=== PATIENT | female | born 1950 | race Caucasian/White ===

== ENCOUNTER 2017-06-03 12:54 | Inpatient (IN) | payer MEDICARE, OTHER ==
[2017-06-03] MEDS: morphine 4 MG/ML VIAL IV (14:49)
[2017-06-03] MEDS: PIPER-TAZO 3.375 GM IV (PMX) 100 ML IVPB (14:49)
[2017-06-03] MEDS: ONDANSETRON 4 MG INJ IV ×3 (14:49→19:39)
[2017-06-03 14:53] LABS: ADD MAN DIFF? NO
[2017-06-03 14:55] LABS: BASOPHILS % 0.5 % (0.0-2.0); EOSINOPHILS # 0.2 10^3/ul (0.0-0.5); EOSINOPHILS % 3.2 % (0.0-7.0); HEMATOCRIT 28.4 % (37.0-47.0); HEMOGLOBIN 9.2 g/dl (12.0-16.0); LYMPHOCYTES # 1.3 10^3/ul (0.8-2.9); LYMPHOCYTES % 20.1 % (15.0-51.0); MEAN CORPUSCULAR HEMOGLOBIN 32.2 pg (29.0-33.0); MEAN CORPUSCULAR HGB CONC 32.4 g/dl (32.0-37.0); MEAN CORPUSCULAR VOLUME 99.3 fl (82.0-101.0); MEAN PLATELET VOLUME 9.2 fl (7.4-10.4); MONOCYTE # 0.6 10^3/ul (0.3-0.9); MONOCYTES % 9.1 % (0.0-11.0); NEUTROPHIL # 4.4 10^3/ul (1.6-7.5); NEUTROPHILS % 66.8 % (39.0-77.0); PLATELET COUNT 194 10^3/UL (140-415); RED BLOOD COUNT 2.86 10^6/ul (4.20-5.40); RED CELL DISTRIBUTION WIDTH 15.7 % (11.5-14.5)
[2017-06-03 14:55] LABS: WHITE BLOOD COUNT 6.6 10^3/ul (4.8-10.8)
[2017-06-03 15:00] LABS: LACTIC ACID 1.8 mmol/L (0.5-2.0)
[2017-06-03 15:00] LABS: INR 1.65; PROTIME 19.9 Sec (11.9-14.9); PT RATIO 1.6
[2017-06-03 15:01] LABS: PARTIAL THROMBOPLASTIN TIME 59.3 Sec (25.0-35.0)
[2017-06-03 15:02] LABS: ALANINE AMINOTRANSFERASE 22 IU/L (13-69); ALBUMIN/GLOBULIN RATIO 0.56; ALKALINE PHOSPHATASE 169 IU/L (42-121); ANION GAP 15 (8-16); ASPARTATE AMINO TRANSFERASE 82 IU/L (15-46); BILIRUBIN,INDIRECT 0.8 mg/dl (0-1.1); BILIRUBIN,TOTAL 0.8 mg/dl (0.2-1.3); BLOOD UREA NITROGEN 17 mg/dl (7-20); CALCIUM 8.5 mg/dl (8.4-10.2); CARBON DIOXIDE 24 mmol/L (21-31); CHLORIDE 106 mmol/L (97-110); CREATININE 0.62 mg/dl (0.44-1.00); GLUCOSE 114 mg/dl (70-220); POTASSIUM 4.3 mmol/L (3.5-5.1); SODIUM 141 mmol/L (135-144); TOTAL PROTEIN 8.3 g/dl (6.1-8.1)
[2017-06-03 15:25] LABS: C-REACTIVE PROTEIN 6.8 mg/dl (0.0-0.9)
[2017-06-03 15:34] LABS: TROPONIN-I < 0.012 ng/ml (0.00-0.12)
[2017-06-03] MEDS: CLINDAMYCIN 900 MG/D5W (PMX) 50 ML IVPB (16:00)
[2017-06-03 16:34] LABS: ERYTHROCYTE SEDIMENTATION RATE 127 mm/Hr (0-30)
[2017-06-03 16:53] LABS: LACTIC ACID 1.5 mmol/L (0.5-2.0)
[2017-06-03] MEDS: VANCOMYCIN 1 GM (PMX) 250 ML IVPB (17:14)
[2017-06-03] MEDS: HYDROmorphONE 0.5 MG/0.5 ML SYG IV (17:21)
[2017-06-03] MEDS: ACETAMINOPHEN 500 MG TAB PO (19:38)
[2017-06-03] MEDS: IBUPROFEN 800 MG TAB PO (19:38)
[2017-06-03] MEDS: SOD CHLORIDE 0.9% 1,000 ML IV (21:35)
[2017-06-04] MEDS: SOD CHLORIDE 0.9% 500 ML IV
[2017-06-04] MEDS: FENTAnyl 50 MCG/ML VIAL IV (00:17)
[2017-06-04] MEDS ORDERED: ONDANSETRON 4 MG INJ IV (02:00)
[2017-06-04] MEDS ORDERED: ACETAMINOPHEN 325 MG TAB PO (02:00)
[2017-06-04] MEDS: CEFEPIME 1GM/50 ML (PMX) 50 ML IVPB ×3 (02:00→20:59)
[2017-06-04] MEDS ORDERED: VANCOMYCIN IV PER PHARMACY XX (02:00)
[2017-06-04] MEDS: morphine 2 MG INJ IV (02:21)
[2017-06-04] MEDS: VANCOMYCIN 1.5 GM in SOD CHLORIDE 0.9% 250 ML IVPB (05:23)
[2017-06-04 11:02] LABS: ADD MAN DIFF? NO
[2017-06-04 11:11] LABS: WHITE BLOOD COUNT 6.1 10^3/ul (4.8-10.8)
[2017-06-04 11:11] LABS: BASOPHILS % 0.5 % (0.0-2.0); EOSINOPHILS # 0.3 10^3/ul (0.0-0.5); EOSINOPHILS % 4.3 % (0.0-7.0); HEMATOCRIT 28.2 % (37.0-47.0); HEMOGLOBIN 8.9 g/dl (12.0-16.0); LYMPHOCYTES % 17.1 % (15.0-51.0); MEAN CORPUSCULAR HEMOGLOBIN 31.9 pg (29.0-33.0); MEAN CORPUSCULAR HGB CONC 31.6 g/dl (32.0-37.0); MEAN CORPUSCULAR VOLUME 101.1 fl (82.0-101.0); MEAN PLATELET VOLUME 8.5 fl (7.4-10.4); MONOCYTE # 0.5 10^3/ul (0.3-0.9); MONOCYTES % 7.9 % (0.0-11.0); NEUTROPHIL # 4.3 10^3/ul (1.6-7.5); NEUTROPHILS % 69.9 % (39.0-77.0); PLATELET COUNT 194 10^3/UL (140-415); RED BLOOD COUNT 2.79 10^6/ul (4.20-5.40); RED CELL DISTRIBUTION WIDTH 15.8 % (11.5-14.5)
[2017-06-04 11:22] LABS: ALANINE AMINOTRANSFERASE 28 IU/L (13-69); ALBUMIN 2.7 g/dl (3.3-4.9); ALKALINE PHOSPHATASE 132 IU/L (42-121); ANION GAP 11 (8-16); ASPARTATE AMINO TRANSFERASE 46 IU/L (15-46); BILIRUBIN,INDIRECT 0.8 mg/dl (0-1.1); BILIRUBIN,TOTAL 0.8 mg/dl (0.2-1.3); BLOOD UREA NITROGEN 18 mg/dl (7-20); CALCIUM 7.6 mg/dl (8.4-10.2); CARBON DIOXIDE 25 mmol/L (21-31); CHLORIDE 108 mmol/L (97-110); CREATININE 0.81 mg/dl (0.44-1.00); GLUCOSE 91 mg/dl (70-220); MAGNESIUM 1.8 mg/dl (1.7-2.5); POTASSIUM 3.4 mmol/L (3.5-5.1); SODIUM 141 mmol/L (135-144); TOTAL PROTEIN 7.2 g/dl (6.1-8.1)
[2017-06-04 11:38] LABS: IRON 72 ug/dl (35-150)
[2017-06-04 11:47] LABS: % IRON SATURATION 37 % SAT (22-52); TOTAL IRON BINDING CAPACITY 194 ug/dl (241-421)
[2017-06-04] MEDS ORDERED: HYDROCODONE/APAP (5/325) TAB PO (16:30)
[2017-06-04] MEDS ORDERED: LORAZEPAM 0.5 MG TAB PO (16:30)
[2017-06-04] MEDS: SOD CHLORIDE 0.9% 1,000 ML IV (17:20)
[2017-06-04] MEDS: morphine (ER) 30 MG TAB PO (20:58)
[2017-06-05] MEDS: VANCOMYCIN 1.5 GM in SOD CHLORIDE 0.9% 250 ML IVPB (05:31)
[2017-06-05] MEDS: PANTOPRAZOLE (EC) 40 MG TAB PO (05:32)
[2017-06-05 05:47] LABS: ADD MAN DIFF? NO
[2017-06-05 05:55] LABS: WHITE BLOOD COUNT 5.3 10^3/ul (4.8-10.8)
[2017-06-05 05:55] LABS: BASOPHILS % 0.6 % (0.0-2.0); EOSINOPHILS # 0.3 10^3/ul (0.0-0.5); EOSINOPHILS % 6.1 % (0.0-7.0); HEMATOCRIT 23.6 % (37.0-47.0); HEMOGLOBIN 7.6 g/dl (12.0-16.0); LYMPHOCYTES # 1.3 10^3/ul (0.8-2.9); MEAN CORPUSCULAR HGB CONC 32.2 g/dl (32.0-37.0); MEAN CORPUSCULAR VOLUME 102.6 fl (82.0-101.0); MEAN PLATELET VOLUME 8.6 fl (7.4-10.4); MONOCYTE # 0.4 10^3/ul (0.3-0.9); MONOCYTES % 8.2 % (0.0-11.0); NEUTROPHIL # 3.2 10^3/ul (1.6-7.5); NEUTROPHILS % 60.7 % (39.0-77.0); PLATELET COUNT 161 10^3/UL (140-415); RED CELL DISTRIBUTION WIDTH 15.6 % (11.5-14.5)
[2017-06-05 06:15] LABS: ANION GAP 11 (8-16); BLOOD UREA NITROGEN 16 mg/dl (7-20); CALCIUM 7.8 mg/dl (8.4-10.2); CARBON DIOXIDE 23 mmol/L (21-31); CHLORIDE 113 mmol/L (97-110); CREATININE 0.77 mg/dl (0.44-1.00); GLUCOSE 86 mg/dl (70-220); POTASSIUM 4.2 mmol/L (3.5-5.1); SODIUM 143 mmol/L (135-144)
[2017-06-05] MEDS ORDERED: SOD CHLORIDE 0.9% 1,000 ML IV (06:30)
[2017-06-05 06:59] LABS: HEPATITIS C VIRAL ANTIBODY REACTIVE (NEGATIVE)
[2017-06-05 07:02] LABS: MAGNESIUM 1.9 mg/dl (1.7-2.5)
[2017-06-05 07:02] LABS: PHOSPHORUS 3.7 mg/dl (2.5-4.9)
[2017-06-05] MEDS: CEFEPIME 1GM/50 ML (PMX) 50 ML IVPB (09:17)
[2017-06-05] MEDS: morphine (ER) 30 MG TAB PO ×2 (09:17→21:11)
[2017-06-05] MEDS: LIDOCAINE 1% (MPF) 5 ML VIAL SC (13:00)
[2017-06-06] MEDS: VANCOMYCIN 1.5 GM in SOD CHLORIDE 0.9% 250 ML IVPB (05:00)
[2017-06-06 05:37] LABS: ADD MAN DIFF? NO
[2017-06-06 05:46] LABS: BASOPHILS % 0.6 % (0.0-2.0); EOSINOPHILS # 0.2 10^3/ul (0.0-0.5); HEMATOCRIT 25.2 % (37.0-47.0); HEMOGLOBIN 7.9 g/dl (12.0-16.0); LYMPHOCYTES # 1.4 10^3/ul (0.8-2.9); LYMPHOCYTES % 28.2 % (15.0-51.0); MEAN CORPUSCULAR HEMOGLOBIN 32.1 pg (29.0-33.0); MEAN CORPUSCULAR HGB CONC 31.3 g/dl (32.0-37.0); MEAN CORPUSCULAR VOLUME 102.4 fl (82.0-101.0); MEAN PLATELET VOLUME 8.3 fl (7.4-10.4); MONOCYTE # 0.4 10^3/ul (0.3-0.9); NEUTROPHIL # 2.9 10^3/ul (1.6-7.5); NEUTROPHILS % 58.4 % (39.0-77.0); PLATELET COUNT 189 10^3/UL (140-415); RED BLOOD COUNT 2.46 10^6/ul (4.20-5.40); RED CELL DISTRIBUTION WIDTH 15.6 % (11.5-14.5)
[2017-06-06] MEDS: PANTOPRAZOLE (EC) 40 MG TAB PO (06:00)
[2017-06-06 06:29] LABS: PHOSPHORUS 4.7 mg/dl (2.5-4.9)
[2017-06-06 06:33] LABS: ANION GAP 12 (8-16); BLOOD UREA NITROGEN 14 mg/dl (7-20); CALCIUM 8.7 mg/dl (8.4-10.2); CARBON DIOXIDE 25 mmol/L (21-31); CHLORIDE 110 mmol/L (97-110); CREATININE 0.76 mg/dl (0.44-1.00); GLUCOSE 101 mg/dl (70-220); POTASSIUM 4.1 mmol/L (3.5-5.1); SODIUM 143 mmol/L (135-144)
[2017-06-06] MEDS: morphine (ER) 30 MG TAB PO ×2 (08:38→21:04)
[2017-06-06] MEDS: LIDOCAINE 1% (MPF) 5 ML VIAL SC (14:30)
[2017-06-06] MEDS: morphine 2 MG INJ IV (16:01)
[2017-06-06] MEDS ORDERED: LIDOCAINE 1% (MPF) 5 ML VIAL SC (19:30)
[2017-06-06] MEDS: SENNA/DOCUSATE NA (8.6MG/50MG) TAB PO (21:04)
[2017-06-06] MEDS: DOCUSATE SODIUM 100 MG CAP PO (21:04)
[2017-06-07 04:07] LABS: ADD MAN DIFF? NO
[2017-06-07 04:16] LABS: BASOPHILS % 0.3 % (0.0-2.0); EOSINOPHILS # 0.2 10^3/ul (0.0-0.5); EOSINOPHILS % 2.9 % (0.0-7.0); HEMATOCRIT 25.1 % (37.0-47.0); HEMOGLOBIN 8.1 g/dl (12.0-16.0); LYMPHOCYTES % 17.9 % (15.0-51.0); MEAN CORPUSCULAR HEMOGLOBIN 32.7 pg (29.0-33.0); MEAN CORPUSCULAR HGB CONC 32.3 g/dl (32.0-37.0); MEAN CORPUSCULAR VOLUME 101.2 fl (82.0-101.0); MEAN PLATELET VOLUME 7.9 fl (7.4-10.4); MONOCYTE # 0.5 10^3/ul (0.3-0.9); MONOCYTES % 9.2 % (0.0-11.0); NEUTROPHILS % 69.4 % (39.0-77.0); PLATELET COUNT 178 10^3/UL (140-415); RED BLOOD COUNT 2.48 10^6/ul (4.20-5.40); RED CELL DISTRIBUTION WIDTH 15.7 % (11.5-14.5)
[2017-06-07 04:16] LABS: WHITE BLOOD COUNT 5.8 10^3/ul (4.8-10.8)
[2017-06-07 04:26] LABS: PROTIME 32.9 Sec (11.9-14.9); PT RATIO 2.6
[2017-06-07 04:33] LABS: ALANINE AMINOTRANSFERASE 28 IU/L (13-69); ALBUMIN 2.7 g/dl (3.3-4.9); ALBUMIN/GLOBULIN RATIO 0.62; ALKALINE PHOSPHATASE 114 IU/L (42-121); ANION GAP 14 (8-16); ASPARTATE AMINO TRANSFERASE 52 IU/L (15-46); BILIRUBIN,INDIRECT 0.8 mg/dl (0-1.1); BILIRUBIN,TOTAL 0.8 mg/dl (0.2-1.3); BLOOD UREA NITROGEN 16 mg/dl (7-20); CALCIUM 8.9 mg/dl (8.4-10.2); CARBON DIOXIDE 21 mmol/L (21-31); CHLORIDE 108 mmol/L (97-110); CREATININE 0.86 mg/dl (0.44-1.00); GLUCOSE 84 mg/dl (70-220); MAGNESIUM 1.6 mg/dl (1.7-2.5); POTASSIUM 4.1 mmol/L (3.5-5.1); SODIUM 139 mmol/L (135-144)
[2017-06-07 04:33] LABS: PHOSPHORUS 5.3 mg/dl (2.5-4.9)
[2017-06-07] MEDS: VANCOMYCIN 1.5 GM in SOD CHLORIDE 0.9% 250 ML IVPB (05:00)
[2017-06-07 05:36] LABS: VANCOMYCIN,TROUGH 19.6 ug/ml (10.0-20.0)
[2017-06-07] MEDS: PANTOPRAZOLE (EC) 40 MG TAB PO (05:54)
[2017-06-07 06:46] LABS: PARTIAL THROMBOPLASTIN TIME 79.6 Sec (25.0-35.0)
[2017-06-07] MEDS: ARIPIPRAZOLE 5 MG TAB PO (09:03)
[2017-06-07] MEDS: morphine (ER) 30 MG TAB PO ×2 (09:04→20:21)
[2017-06-07] MEDS: DOCUSATE SODIUM 100 MG CAP PO ×2 (09:04→20:20)
[2017-06-07] MEDS: PHYTONADIONE 10 MG in DEXTROSE 5% 50 ML IVPB (11:58)
[2017-06-07 12:42] LABS: AMMONIA < 9 umol/l (9-30)
[2017-06-07] MEDS: VANCOMYCIN 1.25 GM in SOD CHLORIDE 0.9% 250 ML IVPB (12:49)
[2017-06-07 13:17] LABS: D-DIMER 2626.34 ng/ml (<460)
[2017-06-07 14:59] LABS: RETICULOCYTE RBC 2.59
[2017-06-07 14:59] LABS: RETICULOCYTE COUNT # 0.094 X10^6 (0.020-0.110); RETICULOCYTE COUNT % 3.6 % (0.5-1.5)
[2017-06-07 15:29] LABS: LACTATE DEHYDROGENASE 625 IU/L (313-618)
[2017-06-07 16:04] LABS: IRON 90 ug/dl (35-150)
[2017-06-07 16:13] LABS: % IRON SATURATION 41 % SAT (22-52); TOTAL IRON BINDING CAPACITY 219 ug/dl (241-421)
[2017-06-07] MEDS: MAGNESIUM SULFATE 2 GM/50 ML 50 ML IVPB (16:29)
[2017-06-07] MEDS: SENNA/DOCUSATE NA (8.6MG/50MG) TAB PO (20:21)
[2017-06-07 20:23] LABS: HIV 1&2 ANTIBODY REACTIVE (NEGATIVE)
[2017-06-08 05:07] LABS: ADD MAN DIFF? NO
[2017-06-08 05:13] LABS: BASOPHILS % 0.4 % (0.0-2.0); EOSINOPHILS # 0.2 10^3/ul (0.0-0.5); EOSINOPHILS % 3.1 % (0.0-7.0); HEMOGLOBIN 7.5 g/dl (12.0-16.0); LYMPHOCYTES # 0.9 10^3/ul (0.8-2.9); LYMPHOCYTES % 17.1 % (15.0-51.0); MEAN CORPUSCULAR HEMOGLOBIN 32.5 pg (29.0-33.0); MEAN CORPUSCULAR HGB CONC 32.6 g/dl (32.0-37.0); MEAN CORPUSCULAR VOLUME 99.6 fl (82.0-101.0); MEAN PLATELET VOLUME 8.3 fl (7.4-10.4); MONOCYTE # 0.5 10^3/ul (0.3-0.9); MONOCYTES % 9.8 % (0.0-11.0); NEUTROPHIL # 3.5 10^3/ul (1.6-7.5); NEUTROPHILS % 69.2 % (39.0-77.0); PLATELET COUNT 185 10^3/UL (140-415); RED BLOOD COUNT 2.31 10^6/ul (4.20-5.40); RED CELL DISTRIBUTION WIDTH 15.9 % (11.5-14.5)
[2017-06-08 05:13] LABS: WHITE BLOOD COUNT 5.1 10^3/ul (4.8-10.8)
[2017-06-08 05:33] LABS: INR 1.93; PROTIME 22.5 Sec (11.9-14.9); PT RATIO 1.8
[2017-06-08 05:34] LABS: ALANINE AMINOTRANSFERASE 25 IU/L (13-69); ALBUMIN 2.8 g/dl (3.3-4.9); ALBUMIN/GLOBULIN RATIO 0.63; ALKALINE PHOSPHATASE 122 IU/L (42-121); ANION GAP 14 (8-16); ASPARTATE AMINO TRANSFERASE 56 IU/L (15-46); BILIRUBIN,INDIRECT 0.9 mg/dl (0-1.1); BILIRUBIN,TOTAL 1.2 mg/dl (0.2-1.3); BLOOD UREA NITROGEN 13 mg/dl (7-20); CALCIUM 8.8 mg/dl (8.4-10.2); CARBON DIOXIDE 22 mmol/L (21-31); CHLORIDE 107 mmol/L (97-110); CREATININE 0.65 mg/dl (0.44-1.00); GLUCOSE 96 mg/dl (70-220); POTASSIUM 3.8 mmol/L (3.5-5.1); SODIUM 139 mmol/L (135-144); TOTAL PROTEIN 7.2 g/dl (6.1-8.1)
[2017-06-08] MEDS: PANTOPRAZOLE (EC) 40 MG TAB PO (05:57)
[2017-06-08 06:26] LABS: MAGNESIUM 1.8 mg/dl (1.7-2.5)
[2017-06-08 06:26] LABS: PHOSPHORUS 3.7 mg/dl (2.5-4.9)
[2017-06-08] MEDS: ARIPIPRAZOLE 5 MG TAB PO (08:57)
[2017-06-08] MEDS: morphine (ER) 30 MG TAB PO ×2 (08:57→20:51)
[2017-06-08] MEDS: DOCUSATE SODIUM 100 MG CAP PO ×2 (08:57→20:52)
[2017-06-08] MEDS ORDERED: ACETAMINOPHEN 325 MG TAB PO (10:30)
[2017-06-08] MEDS ORDERED: FUROSEMIDE 40 MG INJ IV (10:30)
[2017-06-08] MEDS: PHYTONADIONE 10 MG in DEXTROSE 5% 50 ML IVPB (12:08)
[2017-06-08] MEDS: VANCOMYCIN 1.25 GM in SOD CHLORIDE 0.9% 250 ML IVPB (12:57)
[2017-06-08] MEDS: SENNA/DOCUSATE NA (8.6MG/50MG) TAB PO (20:52)
[2017-06-09 05:16] LABS: ADD MAN DIFF? NO
[2017-06-09 05:25] LABS: WHITE BLOOD COUNT 5.4 10^3/ul (4.8-10.8)
[2017-06-09 05:25] LABS: ABNORMAL IP MESSAGE 1; BASOPHILS % 0.4 % (0.0-2.0); EOSINOPHILS # 0.1 10^3/ul (0.0-0.5); EOSINOPHILS % 2.2 % (0.0-7.0); HEMATOCRIT 20.7 % (37.0-47.0); LYMPHOCYTES # 0.7 10^3/ul (0.8-2.9); LYMPHOCYTES % 13.6 % (15.0-51.0); MEAN CORPUSCULAR HEMOGLOBIN 32.5 pg (29.0-33.0); MEAN CORPUSCULAR HGB CONC 32.9 g/dl (32.0-37.0); MEAN PLATELET VOLUME 8.4 fl (7.4-10.4); MONOCYTE # 0.5 10^3/ul (0.3-0.9); NEUTROPHILS % 74.4 % (39.0-77.0); PLATELET COUNT 165 10^3/UL (140-415); RED BLOOD COUNT 2.09 10^6/ul (4.20-5.40); RED CELL DISTRIBUTION WIDTH 16.1 % (11.5-14.5)
[2017-06-09 05:30] LABS: POSITIVE DIFF @See below
[2017-06-09 05:31] LABS: HEMOGLOBIN 6.8 g/dl (12.0-16.0)
[2017-06-09 05:44] LABS: INR 1.52; PROTIME 18.6 Sec (11.9-14.9); PT RATIO 1.5
[2017-06-09 05:53] LABS: ALANINE AMINOTRANSFERASE 26 IU/L (13-69); ALBUMIN 2.4 g/dl (3.3-4.9); ALBUMIN/GLOBULIN RATIO 0.58; ALKALINE PHOSPHATASE 109 IU/L (42-121); ANION GAP 13 (8-16); ASPARTATE AMINO TRANSFERASE 52 IU/L (15-46); BILIRUBIN,INDIRECT 0.9 mg/dl (0-1.1); BILIRUBIN,TOTAL 1.2 mg/dl (0.2-1.3); BLOOD UREA NITROGEN 7 mg/dl (7-20); CALCIUM 8.5 mg/dl (8.4-10.2); CARBON DIOXIDE 22 mmol/L (21-31); CHLORIDE 109 mmol/L (97-110); CREATININE 0.58 mg/dl (0.44-1.00); GLUCOSE 96 mg/dl (70-220); POTASSIUM 3.6 mmol/L (3.5-5.1); SODIUM 140 mmol/L (135-144); TOTAL PROTEIN 6.5 g/dl (6.1-8.1)
[2017-06-09 06:00] LABS: MAGNESIUM 1.6 mg/dl (1.7-2.5)
[2017-06-09 06:00] LABS: PHOSPHORUS 2.8 mg/dl (2.5-4.9)
[2017-06-09 06:01] LABS: PROTEIN, TOTAL 7.1 g/dL (6.1-8.1)
[2017-06-09] MEDS: PANTOPRAZOLE (EC) 40 MG TAB PO (06:41)
[2017-06-09] MEDS: morphine (ER) 30 MG TAB PO ×2 (08:40→20:35)
[2017-06-09] MEDS: ARIPIPRAZOLE 5 MG TAB PO (08:40)
[2017-06-09] MEDS: DOCUSATE SODIUM 100 MG CAP PO ×2 (08:41→20:35)
[2017-06-09] MEDS: LIDOCAINE 1% (MPF) 5 ML VIAL SC (10:33)
[2017-06-09 10:57] LABS: OCCULT BLOOD STOOL POSITIVE (NEGATIVE)
[2017-06-09] MEDS: VANCOMYCIN 1.25 GM in SOD CHLORIDE 0.9% 250 ML IVPB (12:07)
[2017-06-09 15:51] LABS: ALBUMIN 2.5 g/dL (3.8-4.8); ALPHA-1-GLOBULINS 0.5 g/dL (0.2-0.3); ALPHA-2-GLOBULINS 0.7 g/dL (0.5-0.9); BETA 2 GLOBULINS 0.5 g/dL (0.2-0.5); BETA GLOBULINS 0.5 g/dL (0.4-0.6); GAMMA GLOBULINS 2.5 g/dL (0.8-1.7)
[2017-06-09] MEDS: SENNA/DOCUSATE NA (8.6MG/50MG) TAB PO (20:35)
[2017-06-09] MEDS: EPOETIN 4000 UNITS/ML (NON ESRD/NON ONCOLOGY) SC (20:42)
[2017-06-10 05:30] LABS: ADD MAN DIFF? NO
[2017-06-10 05:36] LABS: BASOPHILS % 0.5 % (0.0-2.0); EOSINOPHILS # 0.1 10^3/ul (0.0-0.5); EOSINOPHILS % 2.5 % (0.0-7.0); HEMATOCRIT 23.3 % (37.0-47.0); HEMOGLOBIN 7.6 g/dl (12.0-16.0); LYMPHOCYTES # 0.9 10^3/ul (0.8-2.9); LYMPHOCYTES % 16.4 % (15.0-51.0); MEAN CORPUSCULAR HEMOGLOBIN 32.8 pg (29.0-33.0); MEAN CORPUSCULAR HGB CONC 32.6 g/dl (32.0-37.0); MEAN CORPUSCULAR VOLUME 100.4 fl (82.0-101.0); MEAN PLATELET VOLUME 8.4 fl (7.4-10.4); MONOCYTE # 0.5 10^3/ul (0.3-0.9); MONOCYTES % 8.1 % (0.0-11.0); NEUTROPHILS % 72.1 % (39.0-77.0); PLATELET COUNT 194 10^3/UL (140-415); RED BLOOD COUNT 2.32 10^6/ul (4.20-5.40); RED CELL DISTRIBUTION WIDTH 16.6 % (11.5-14.5)
[2017-06-10 05:36] LABS: WHITE BLOOD COUNT 5.6 10^3/ul (4.8-10.8)
[2017-06-10 05:41] LABS: ALANINE AMINOTRANSFERASE 31 IU/L (13-69); ALBUMIN 2.6 g/dl (3.3-4.9); ALBUMIN/GLOBULIN RATIO 0.63; ALKALINE PHOSPHATASE 150 IU/L (42-121); ANION GAP 14 (8-16); ASPARTATE AMINO TRANSFERASE 63 IU/L (15-46); BILIRUBIN,INDIRECT 1.1 mg/dl (0-1.1); BILIRUBIN,TOTAL 1.7 mg/dl (0.2-1.3); BLOOD UREA NITROGEN 3 mg/dl (7-20); CALCIUM 8.5 mg/dl (8.4-10.2); CARBON DIOXIDE 23 mmol/L (21-31); CHLORIDE 108 mmol/L (97-110); CREATININE 0.51 mg/dl (0.44-1.00); GLUCOSE 102 mg/dl (70-220); POTASSIUM 3.4 mmol/L (3.5-5.1); SODIUM 142 mmol/L (135-144); TOTAL PROTEIN 6.7 g/dl (6.1-8.1)
[2017-06-10] MEDS: PANTOPRAZOLE (EC) 40 MG TAB PO (05:43)
[2017-06-10 05:59] LABS: MAGNESIUM 1.5 mg/dl (1.7-2.5)
[2017-06-10 05:59] LABS: PHOSPHORUS 2.4 mg/dl (2.5-4.9)
[2017-06-10] MEDS: ARIPIPRAZOLE 5 MG TAB PO (08:48)
[2017-06-10] MEDS: morphine (ER) 30 MG TAB PO ×2 (08:49→20:23)
[2017-06-10] MEDS: DOCUSATE SODIUM 100 MG CAP PO ×2 (08:49→21:00)
[2017-06-10] MEDS: LIDOCAINE 1% (MPF) 5 ML VIAL SC (10:00)
[2017-06-10 12:31] LABS: VANCOMYCIN,TROUGH 11.1 ug/ml (10.0-20.0)
[2017-06-10] MEDS: VANCOMYCIN 1.25 GM in SOD CHLORIDE 0.9% 250 ML IVPB (12:45)
[2017-06-10 12:57] LABS: LYMPHOCYTE - % CD4 (HELPER) 36 % (30-61); LYMPHOCYTE - % CD4 (HELPER) 38 % (30-61); LYMPHOCYTE - %CD8 (SUPPRESSOR) 17 % (12-42); LYMPHOCYTE - %CD8 (SUPPRESSOR) 18 % (12-42); LYMPHOCYTE - ABSOLUTE 804 cells/uL (850-3900); LYMPHOCYTE - ABSOLUTE 904 cells/uL (850-3900); LYMPHOCYTE - ABSOLUTE CD4 308 cells/uL (490-1740); LYMPHOCYTE - ABSOLUTE CD4 329 cells/uL (490-1740); LYMPHOCYTE - ABSOLUTE CD8 133 cells/uL (180-1170); LYMPHOCYTE - ABSOLUTE CD8 167 cells/uL (180-1170); LYMPHOCYTE - CD4/CD8 RATIO 1.97 (0.86-5.00); LYMPHOCYTE - CD4/CD8 RATIO 2.32 (0.86-5.00)
[2017-06-10] MEDS: POTASSIUM PHOSPHATE 20 MEQ in SOD CHLORIDE 0.9% 250 ML IVPB (16:23)
[2017-06-10] MEDS: SENNA/DOCUSATE NA (8.6MG/50MG) TAB PO (21:00)
[2017-06-10] MEDS: MAGNESIUM SULFATE 2 GM/50 ML 50 ML IVPB (21:52)
[2017-06-11] MEDS: PANTOPRAZOLE (EC) 40 MG TAB PO (05:06)
[2017-06-11] MEDS: ARIPIPRAZOLE 5 MG TAB PO (08:31)
[2017-06-11] MEDS: morphine (ER) 30 MG TAB PO (08:42)
[2017-06-11] MEDS: DOCUSATE SODIUM 100 MG CAP PO (08:43)
[2017-06-11] MEDS: VANCOMYCIN 1.25 GM in SOD CHLORIDE 0.9% 250 ML IVPB (12:15)
== END 2017-06-11 15:51 | DRG 559 ==
LOC: MS1 21:49 → E/R 12:54
PROC: 02H633Z Insertion of Infusion Device into Right Atrium, Percutaneous Approach (ICD-10-PCS; principal; 2017-06-06)
DX: T84.53XA Infection and inflammatory reaction due to internal right knee prosthesis, initial encounter (principal); A41.9 Sepsis, unspecified organism; L03.115 Cellulitis of right lower limb; Z68.41 Body mass index [BMI] 40.0-44.9, adult; E46 Unspecified protein-calorie malnutrition; D68.9 Coagulation defect, unspecified; E66.01 Morbid (severe) obesity due to excess calories; Z96.651 Presence of right artificial knee joint; G89.4 Chronic pain syndrome; I95.9 Hypotension, unspecified; I87.8 Other specified disorders of veins; X58.XXXD Exposure to other specified factors, subsequent encounter; E86.0 Dehydration; M17.11 Unilateral primary osteoarthritis, right knee; M85.861 Other specified disorders of bone density and structure, right lower leg; F41.9 Anxiety disorder, unspecified; K74.60 Unspecified cirrhosis of liver; K76.0 Fatty (change of) liver, not elsewhere classified; K64.9 Unspecified hemorrhoids; D63.8 Anemia in other chronic diseases classified elsewhere; I73.9 Peripheral vascular disease, unspecified; Z74.09 Other reduced mobility; Z86.19 Personal history of other infectious and parasitic diseases; Q82.0 Hereditary lymphedema; Z99.3 Dependence on wheelchair; S82.102D Unspecified fracture of upper end of left tibia, subsequent encounter for closed fracture with routine healing; S82.101D Unspecified fracture of upper end of right tibia, subsequent encounter for closed fracture with routine healing
CPT/HCPCS: 36415; 36569; 71045; 73590; 76705; 76937; 80048; 80053; 80202; 82140; 82270; 82728; 83540; 83605; 83615; 83735; 84100; 84155; 84165; 84443; 84484; 85025; 85045; 85378; 85384; 85610; 85613; 85651; 85730; 86140; 86360; 86701; 86703; 86803; 86850; 86900; 86901; 86920; 87040; 87070; 87081; 87536; 93005; 93971; 96361; 96374; 96375; 96376; 97110; 97162; 97530; 99291-25